=== PATIENT | female | born 1995 | race Caucasian/White ===

== ENCOUNTER 2019-05-12 06:46 | Emergency (ER) | payer MEDICAID ==
[~2019-05-12] VITALS: Ht 160 cm; Wt 55.3 kg
[2019-05-12] MEDS ORDERED: Augmentin 875-1 EACH PO (07:41)
== END 2019-05-12 07:50 | disposition home or self-care (01) ==
LOC: ER 06:46
DX: R22.0 Localized swelling, mass and lump, head (principal)
CPT/HCPCS: 99283